=== PATIENT | female | born 1950 | race American Indian/Alaskan Native ===

== ENCOUNTER 2020-02-05 22:33 | Emergency (ER) | payer MEDICARE ==
[2020-02-05] MEDS ORDERED: ALBUTEROL 2.5 MG/3 ML NEBU IH ONE (23:33)
[2020-02-05] MEDS ORDERED: SODIUM CHLORIDE 0.9% 250ML 250 ML IV ONE (23:33)
--- NOTE | 2020-02-05 23:34 | Emergency Department Report ---
ED General Adult HPI - General Chief complaint: Upper Respiratory Infection Stated complaint: COUGHING BLOOD PUI?: No Time Seen by Provider: 02/05/20 23:17 Source: patient, EMS (Verbal report received from emergency medical services. EMS documentation not available at time of chart dictation ), RN notes reviewed Mode of arrival: Stretcher Limitations: Physical Limitation - History of Present Illness Initial comments: The patient was evaluated in the emergency department for symptoms described in the history of present illness. He/she was evaluated in the context of the global COVID-19 pandemic, which necessitated consideration that the patient might be at risk for infection with the virus that causes COVID-19. Institu tional protocols and algorithms that pertain to the evaluation of patients at risk for COVID-19 are in a state of rapid change based on information released by regulatory bodies including the CDC and federal and state organizations. These policies and algorithms were followed during the patient's care in the emergency department. Please note that these policies, procedures and recommendations changed on a rapid basis. Patient is a 69-year-old obese female, with a history of diabetes and hyper tension, sarcoidosis, chronic respiratory failure on 6 L of home oxygen, reported chronic systolic cardiac murmur, and systemic anticoagulation, presenting to the ER today with a complaint of coughing up blood. Patient states that she was cleaning at home with bleach, and began to cough vigorously, and then coughed up a few teaspoons worth of blood. This has since resolved. She denies headache, neck pain, chest pain, abdominal pain, hematemesis and bright red blood per rectum, and she also denies DVT and pulmonary embolism risk factors. She endorsed "clogged sinuses", which have been "there for a long time." -: Sudden Consistency: now resolved Improves with: none Worsens with: none - Related Data Home Medications Medication Instructions Recorded Confirmed Last Taken Albuterol Mdi (or & Nicu Only) 2 puff IH QID PRN 02/16/13 02/16/13 02/15/13 [ProAir HFA Inhaler] Ferrous Sulfate [Ferrous Sulfate 220 mg PO 02/16/13 02/16/13 02/15/13 Oral Liq 220 Mg/5 Ml] Furosemide [Furosemide ORAL LIQ] 40 mg PO QDAY 02/16/13 02/16/13 02/15/13 Hydrocodone Bit/Acetaminophen 1 tab PO Q6H PRN 02/16/13 02/16/13 02/15/13 [Hydrocodon-Acetaminoph 2.5-500 mg] Insulin NPH/Regular [NovoLIN 70/30] 20 unit SQ ONCE 02/16/13 02/16/13 02/16/13 Losartan [Cozaar] 50 mg PO QDAY 02/16/13 02/16/13 02/15/13 Pregabalin [Lyrica] 150 mg PO BID 02/16/13 02/16/13 02/15/13 Simvastatin 20 mg PO QDAY 02/16/13 02/16/13 02/15/13 Solifenacin Succinate [Vesicare] 5 mg PO QDAY 02/16/13 02/16/13 02/15/13 carvediloL [Coreg] 6.25 mg PO BID 02/16/13 02/16/13 02/15/13 dilTIAZem HCl [Diltiazem 24Hr ER] 02/16/13 02/16/13 02/15/13 metFORMIN [Glucophage] 500 mg PO BID 02/16/13 02/16/13 02/15/13 Allergies Allergy/AdvReac Type Severity Reaction Status Date / Time Sulfa (Sulfonamide Allergy Itching Unverified 02/16/13 10:36 Antibiotics) ED Review of Systems ROS: Stated complaint: COUGHING BLOOD Other details as noted in HPI Constitutional: denies: fever, malaise Eyes: denies: eye discharge ENT: congestion Respiratory: cough, shortness of breath, SOB with exertion, SOB at rest, wheezing Cardiovascular: denies: chest pain Gastrointestinal: denies: abdominal pain, hematemesis, melena, hematochezia Genitourinary: denies: dysuria Hematological/Lymphatic: denies: easy bleeding ED Past Medical Hx - Past Medical History Previous Medical History?: Yes Hx Diabetes: Yes Additional medical history: scarcodosis. "Heart probs". tachycardia - Surgical History Past Surgical History?: Yes Additional Surgical History: tonsil. thyroid. partial hyster - Social History Smoking Status: Never Smoker Substance Use Type: None - Medications Home Medications: Home Medications Medication Instructions Recorded Confirmed Last Taken Type Albuterol Mdi (or & Nicu Only) 2 puff IH QID PRN 02/16/13 02/16/13 02/15/13 History [ProAir HFA Inhaler] Ferrous Sulfate [Ferrous Sulfate 220 mg PO 02/16/13 02/16/13 02/15/13 History Oral Liq 220 Mg/5 Ml] Furosemide [Furosemide ORAL LIQ] 40 mg PO QDAY 02/16/13 02/16/13 02/15/13 History Hydrocodone Bit/Acetaminophen 1 tab PO Q6H PRN 02/16/13 02/16/13 02/15/13 History [Hydrocodon-Acetaminoph 2.5-500 mg] Insulin NPH/Regular [NovoLIN 70/30] 20 unit SQ ONCE 02/16/13 02/16/13 02/16/13 History Losartan [Cozaar] 50 mg PO QDAY 02/16/13 02/16/13 02/15/13 History Pregabalin [Lyrica] 150 mg PO BID 02/16/13 02/16/13 02/15/13 History Simvastatin 20 mg PO QDAY 02/16/13 02/16/13 02/15/13 History Solifenacin Succinate [Vesicare] 5 mg PO QDAY 02/16/13 02/16/13 02/15/13 History carvediloL [Coreg] 6.25 mg PO BID 02/16/13 02/16/13 02/15/13 History dilTIAZem HCl [Diltiazem 24Hr ER] 02/16/13 02/16/13 02/15/13 History metFORMIN [Glucophage] 500 mg PO BID 02/16/13 02/16/13 02/15/13 History ED Physical Exam - General Limitations: Physical Limitation General appearance: alert, in no apparent distress, obese - Head Head exam: Present: atraumatic, normocephalic - Eye Eye exam: Present: normal appearance, EOMI. Absent: nystagmus - ENT ENT exam: Present: normal exam, normal orophraynx, mucous membranes moist, normal external ear exam - Neck Neck exam: Present: normal inspection, full ROM. Absent: tenderness, meningismus - Respiratory Respiratory exam: Present: wheezes. Absent: respiratory distress, rhonchi, stridor - Cardiovascular Cardiovascular Exam: Present: regular rate, normal rhythm, normal heart sounds, systolic murmur (2 out of 6 systolic murmur heard best at right and left second intercostal space). Absent: bradycardia, tachycardia, irregular rhythm, diastolic murmur, rubs, gallop - GI/Abdominal GI/Abdominal exam: Present: soft. Absent: distended, tenderness, guarding, rebound, rigid, pulsatile mass - Extremities Exam Extremities exam: Present: normal inspection, full ROM, other (2+ pulses noted in the bilateral upper and lower extremities. There is no palpable cord. negative Homans sign. Muscular compartments are soft. The pelvis is stable.). Absent: pedal edema, calf tenderness - Back Exam Back exam: Present: normal inspection, full ROM. Absent: tenderness, CVA tenderness (R), CVA tenderness (L), paraspinal tenderness, vertebral tenderness - Neurological Exam Neurological exam: Present: alert, other (No facial droop. Tongue midline. Extraocular movements intact bilaterally. Facial sensation intact to light touch in V1, V2, V3 distribution bilaterally. 5 and a 5 strength in 4 ext remities. Sensation intact to light touch in 4 extremities.) - Psychiatric Psychiatric exam: Present: normal affect, normal mood - Skin Skin exam: Present: warm, dry, intact, normal color. Absent: rash ED Course Vital Signs 02/06/20 00:00 Temperature 98.4 F Pulse Rate 98 H Respiratory 16 Rate Blood Pressure 113/57 [Left] O2 Sat by Pulse 100 Oximetry - Reevaluation(s) Reevaluation #1: 02/06/20 00:05 Differential diagnosis, including but not limited to: Bronchitis, bronchiectasis, sinusitis, pneumonia Pneumonitis Assessment and plan: 69-year-old female with resolved hemoptysis, who denies DVT and pulmonary embolism risk factors, with mild left-sided maxillary sinus tenderness, no intraoral blood, no intranasal blood, with resolved bronchitis versus chemical pneumonitis. We will treat her symptoms, obtain x-ray of the chest, appropriate laboratory studies and reassess. 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 Bradley, with whom she follows with at [facility]. Reevaluation #2: 02/06/20 00:59 Patient reassessed. She feels improved. Heart rate is 94 bpm. X-ray of the chest reviewed and appreciated. Based off of the history and physical, do not suspect acute pneumonia. This is most likely bronchitis with possible superimposed mild pneumonitis. Patient denies fever, and states that she feels "fine." She also reports a history of chronic anemia, which "my outpatient primary care doctor is getting this figured out." She has been on iron sulfate supplementation in the past and does not like it "because it upsets my stomach. Chemistries reviewed and appreciated, fairly unremarkable. Patient endorses that she is reliable to follow-up as an outpatient. ED Medical Decision Making - Lab Data Result diagrams: 02/06/20 00:09 02/06/20 00:09 Vital Signs 02/06/20 00:00 Temperature 98.4 F Pulse Rate 98 H Respiratory 16 Rate Blood Pressure 113/57 [Left] O2 Sat by Pulse 100 Oximetry - Radiology Data Radiology results: image reviewed interpreted by me: 2 view x-ray of the chest shows diffuse parenchymal disease, suggestive of prior history of sarcoid Print Report Referring Physician: SHEREE COX Patient Name: MADDI ARELLANO Date of : 1950 Sex: Female Report Date: 2020-02-06 Report Status: [place] [address] XRay Report Signed Patient: MADDI ARELLANO MR#: [id number] : 1950 Acct:[id number] Age/Sex: 69 / F ADM Date: 02/05/20 Loc: ED Attending Dr: Ordering Physician: SHEREE COX MD Date of Service: 02/05/20 Procedure(s): XR chest routine 2V Accession Number(s): [id number] cc: SHEREE COX MD Me uoro Time In Minutes: CHEST 2 VIEWS INDICATION / CLINICAL INFORMATION: Hemoptysis. COMPARISON: None available. FINDINGS: SUPPORT DEVICES: None. HEART / MEDIASTINUM: No significant abnormality. LUNGS / PLEURA: There are diffuse bilateral parenchymal opacities slightly greater on the right than the left. .No pneumothorax. ADDITIONAL FINDINGS: No significant additional findings. IMPRESSION: 1. There are diffuse bilateral pulmonary opacities. This could represent diffuse pneumonia or edema. Signer Name: Jose Alejandro Soria MD Signed: 02/06/2020 12:16 AM Workstation Name: [id number] Transcribed By: SS Dictated By: Jose Alejandro Soria MD Electronically Authenticated By: Jose Alejandro Soria MD Signed Date/Time: 02/06/2015 DD/ TD/TT: Critical care attestation.: If time is entered above; I have spent that time in minutes in the direct care o f this critically ill patient, excluding procedure time. ED Disposition Clinical Impression: Microcytic anemia, Sarcoid, History of hemoptysis Disposition: TO HOME OR SELFCARE Is pt being admited?: No Does the pt Need Aspirin: No Condition: Stable Instructions: Acute Hemoptysis (ED), Sarcoidosis (ED) Additional Instructions: Please continue current outpatient medications. Minimize/avoid consumption of Motrin, ibuprofen, Naprosyn, Aleve. Avoid exposure to cleaning chemicals, bleeds, and industrial solvents. Please follow-up with a primary care doctor or sewer connector within the next 5 to 7 days. Please return to the emergency room right away with new pain, worsened pain, migration of pain, projectile vomiting, change in mental status, confusion, inability to tolerate liquid feeds, new, worsened or different symptoms not present on the initial emergency room evaluation Referrals: SELVIN SCHULTZ MD [Staff Physician] - 3-5 Days SID OSPINA MD [Staff Physician] - 3-5 Days
--- NOTE | 2020-02-06 00:21 | XRay Report ---
CHEST 2 VIEWS INDICATION / CLINICAL INFORMATION: Hemoptysis. COMPARISON: None available. FINDINGS: SUPPORT DEVICES: None. HEART / MEDIASTINUM: No significant abnormality. LUNGS / PLEURA: There are diffuse bilateral parenchymal opacities slightly greater on the right than the left. .No pneumothorax. ADDITIONAL FINDINGS: No significant additional findings. IMPRESSION: 1. There are diffuse bilateral pulmonary opacities. This could represent diffuse pneumonia or edema. Signer Name: Jose Alejandro Soria MD Signed: 02/06/2020 12:16 AM Workstation Name: [id number]
[2020-02-06 00:42] LABS: Hematocrit 27.2 % (30.3-42.9); Hemoglobin 8.9 gm/dl (10.1-14.3); Mean Corpuscular HGB Conc 33 % (30-34); Mean Corpuscular Volume 77 fl (79-97); Platelet Count 227 K/mm3 (140-440); Red Blood Count 3.56 M/mm3 (3.65-5.03); Red Cell Distribution Width 15.2 % (13.2-15.2)
[2020-02-06 00:49] LABS: Alanine Aminotransferase 23 units/L (7-56); Albumin 3.6 g/dL (3.9-5); BUN/Creatinine Ratio 18; Blood Urea Nitrogen 16 mg/dL (7-17); Calcium 8.8 mg/dL (8.4-10.2); Hemolysis Index 2; INR 0.97 (0.87-1.13)
[2020-02-06 01:39] VITALS: BP 133/73
== END 2020-02-06 02:20 | disposition home or self-care (01) ==
LOC: ED 22:33
DX: D50.9 Iron deficiency anemia, unspecified (principal); D86.9 Sarcoidosis, unspecified; R04.2 Hemoptysis; E11.9 Type 2 diabetes mellitus without complications; Z98.890 Other specified postprocedural states; Z79.899 Other long term (current) drug therapy; Z79.4 Long term (current) use of insulin; Z88.2 Allergy status to sulfonamides
CPT/HCPCS: 36415; 71046; 80053; 85027; 85610; 94640; 96360; 99285; J7050; 94644

== ENCOUNTER 2021-03-15 04:22 | Emergency (ER) | payer MEDICARE ==
--- NOTE | 2021-03-15 04:38 | Emergency Department Report ---
ED CPR HPI - General Stated Complaint: CARDIAC ARREST Time Seen by Provider: 03/15/21 04:24 - History of Present Illness Initial Comments: 70-year-old female, history of COPD, presents to the ED in cardiac arrest. EMS reports they received a call for patient that was "barely breathing." EMS arrived, patient was pulseless, apneic, and in asystole. Unknown downtime. Patient was intubated by EMS, ACLS was initiated. Accu-Chek in the 200s. Patient received epi x5, sodium bicarb x1. EMS reports last rhythm check showed PEA. Patient in continued arrest upon arrival. EMS reports they performed CPR on patient for at least 20 minutes. Of note, pt was intubated by EMS. ET tube upon arrival likely right main stem as O2 sats were low and decreased breath sounds in left lung field. ET tube was retracted until able to hear breath sounds bilaterally. O2 sats eventually normalized. MD Complaint: found unresponsive Place: home Initial Findings in the Field: unresponsive, no respirations, no pulse ROSC in the Field: No Treatments Prior to Arrival: chest compressions, epinephrine mgs # (4), sodium bicarbonate (x1) - Related Data Home Medications Medication Instructions Recorded Confirmed Last Taken Albuterol Mdi (or & Nicu Only) 2 puff IH QID PRN 02/16/13 02/16/13 02/15/13 [ProAir HFA Inhaler] Ferrous Sulfate [Ferrous Sulfate 220 mg PO 02/16/13 02/16/13 02/15/13 Oral Liq 220 Mg/5 Ml] Furosemide [Furosemide ORAL LIQ] 40 mg PO QDAY 02/16/13 02/16/13 02/15/13 Hydrocodone Bit/Acetaminophen 1 tab PO Q6H PRN 02/16/13 02/16/13 02/15/13 [Hydrocodon-Acetaminoph 2.5-500 mg] Insulin NPH/Regular [NovoLIN 70/30] 20 unit SQ ONCE 02/16/13 02/16/13 02/16/13 Losartan [Cozaar] 50 mg PO QDAY 02/16/13 02/16/13 02/15/13 Pregabalin [Lyrica] 150 mg PO BID 02/16/13 02/16/13 02/15/13 Simvastatin 20 mg PO QDAY 02/16/13 02/16/13 02/15/13 Solifenacin Succinate [Vesicare] 5 mg PO QDAY 02/16/13 02/16/13 02/15/13 carvediloL [Coreg] 6.25 mg PO BID 02/16/13 02/16/13 02/15/13 dilTIAZem HCl [Diltiazem 24Hr ER] 02/16/13 02/16/13 02/15/13 metFORMIN [Glucophage] 500 mg PO BID 02/16/13 02/16/13 02/15/13 Allergies Allergy/AdvReac Type Severity Reaction Status Date / Time Sulfa (Sulfonamide Allergy Itching Unverified 02/16/13 10:36 Antibiotics) ED Review of Systems ROS: Stated complaint: CARDIAC ARREST Other details as noted in HPI Comment: Unobtainable due to pts medical conditions ED Past Medical Hx - Past Medical History Hx Diabetes: Yes Additional medical history: scarcodosis. "Heart probs". tachycardia - Surgical History Additional Surgical History: tonsil. thyroid. partial hyster - Social History Smoking Status: Never Smoker Substance Use Type: None - Medications Home Medications: Home Medications Medication Instructions Recorded Confirmed Last Taken Type Albuterol Mdi (or & Nicu Only) 2 puff IH QID PRN 02/16/13 02/16/13 02/15/13 History [ProAir HFA Inhaler] Ferrous Sulfate [Ferrous Sulfate 220 mg PO 02/16/13 02/16/13 02/15/13 History Oral Liq 220 Mg/5 Ml] Furosemide [Furosemide ORAL LIQ] 40 mg PO QDAY 02/16/13 02/16/13 02/15/13 History Hydrocodone Bit/Acetaminophen 1 tab PO Q6H PRN 02/16/13 02/16/13 02/15/13 History [Hydrocodon-Acetaminoph 2.5-500 mg] Insulin NPH/Regular [NovoLIN 70/30] 20 unit SQ ONCE 02/16/13 02/16/13 02/16/13 History Losartan [Cozaar] 50 mg PO QDAY 02/16/13 02/16/13 02/15/13 History Pregabalin [Lyrica] 150 mg PO BID 02/16/13 02/16/13 02/15/13 History Simvastatin 20 mg PO QDAY 02/16/13 02/16/13 02/15/13 History Solifenacin Succinate [Vesicare] 5 mg PO QDAY 02/16/13 02/16/13 02/15/13 History carvediloL [Coreg] 6.25 mg PO BID 02/16/13 02/16/13 02/15/13 History dilTIAZem HCl [Diltiazem 24Hr ER] 02/16/13 02/16/13 02/15/13 History metFORMIN [Glucophage] 500 mg PO BID 02/16/13 02/16/13 02/15/13 History ED Physical Exam - General General appearance: obese - Head Head exam: Present: atraumatic, normocephalic - Eye Pupils: Present: other (fixed and dilated bilaterally) - ENT ENT exam: Present: other (ET tube in place; pink frothy sputum in tube) - Neck Neck exam: Present: normal inspection - Respiratory Respiratory exam: Present: other (No spontaneous breaths) - Cardiovascular Cardiovascular Exam: Present: other (No palpable pulse) - GI/Abdominal GI/Abdominal exam: Present: soft, distended - Extremities Exam Extremities exam: Present: pedal edema - Neurological Exam Neurological exam: Present: other (GCS 3) - Skin Skin exam: Present: warm, dry, intact, normal color ED Course Vital Signs 03/15/21 03/15/21 03/15/21 04:21 04:47 05:28 Respiratory 30 H Rate O2 Sat by Pulse 50 L 94 0 L Oximetry - Consultations Consultation #1: 03/15/21 04:[address] Delgado for review due to concern for aVR elevation and diffuse ST depressions. States no STEMI. ED Medical Decision Making - Lab Data Result diagrams: 03/15/21 04:36 03/15/21 04:36 - EKG Data -: EKG Interpreted by [place] EKG shows normal: sinus rhythm, intervals, QRS complexes Rate: normal - EKG Data Interpretation: other (aVR elevation; inferolateral depressions) - Radiology Data Radiology results: report reviewed, image reviewed - Medical Decision Making 70-year-old female presents to ED in cardiac arrest. Down for at least 20 minutes with EMS. Patient coded multiple times following ED arrival. Please see nurses notes for details. With each episode of ROSC, patient was noted to have normal blood pressures. Patient's blood pressure eventually began to trend downward. IV fluids were administered. Patient continued to be hypotensive, so decision was made to place a central line. During set up for central line, patient went into cardiac arrest again. Unable to get patient stable during her ED stay. Pupils fixed and dilated. No signs of neuro function. GCS 3. Ultimately, patient again went into PEA arrest and time of was called at 5:25 AM. - Differential Diagnosis ACS, PE, aortic dissection Critical Care Time: Yes Critical care time in (mins) excluding proc time.: 35 Critical care attestation.: If time is entered above; I have spent that time in minutes in the direct care of this critically ill patient, excluding procedure time. Critical Care Time: 35 min ED Disposition Clinical Impression: Cardiac arrest, Pneumonia, Anemia, Lactic acidosis Disposition: 20 Is pt being admited?: No Condition: Stable Instructions: Bacterial Pneumonia (ED) Referrals: PRIMARY CARE, [Primary Care Provider] - 3-5 Days
[2021-03-15] MEDS ORDERED: SODIUM CHLORIDE 0.9% 1000 ML 2,000 ML ONE (05:01)
[2021-03-15 05:02] LABS: Hematocrit 22.6 % (30.3-42.9); Hemoglobin 6.8 gm/dl (10.1-14.3); Mean Corpuscular HGB Conc 30 % (30-34); Mean Corpuscular Volume 90 fl (79-97); Platelet Count 171 K/mm3 (140-440); Red Blood Count 2.52 M/mm3 (3.65-5.03); Red Cell Distribution Width 18.1 % (13.2-15.2)
[2021-03-15] MEDS ORDERED: CEFEPIME/NS 2 GM/100 ML 2 GM/100 ML BAG IV ONE (05:04)
[2021-03-15 05:14] LABS: INR 1.08 (0.87-1.13)
[2021-03-15 05:15] LABS: Partial Thromboplastin Time 41.2 Sec. (24.2-36.6)
--- NOTE | 2021-03-15 05:19 | XRay Report ---
CHEST 1 VIEW 03/15/2021 4:30 AM INDICATION / CLINICAL INFORMATION: Postcardiac arrest. COMPARISON: 02/05/20. FINDINGS: SUPPORT DEVICES: There is an endotracheal tube with the tip approximately 3 cm above the jourdan. HEART / MEDIASTINUM: TAVR without complication. The heart size is normal. LUNGS / PLEURA: Moderate diffuse bilateral parenchymal disease, more prominent in the right upper lob e. Disease in the right upper lobe has increased significantly since the prior study. More diffuse bi lateral parenchymal disease is similar to the prior exam. No pleural effusion or pneumothorax. ADDITIONAL FINDINGS: No significant additional findings. IMPRESSION: Diffuse bilateral parenchymal disease, most prominent in the right upper lobe. Some of th e findings may be chronic. Disease in the right upper lobe has increased significantly and is likely related to pneumonia or aspiration. Signer Name: Benjamin Pineda MD Signed: 03/15/2021 5:15 AM Workstation Name: [id number]
[2021-03-15 05:27] LABS: Alanine Aminotransferase 49 units/L (7-56); Albumin 3.1 g/dL (3.9-5); BUN/Creatinine Ratio 15; Blood Urea Nitrogen 21 mg/dL (7-17); Calcium 8.3 mg/dL (8.4-10.2); Hemolysis Index 19
[2021-03-15 05:32] LABS: Bilirubin,Direct < 0.2 mg/dL (0-0.2)
[2021-03-15] MEDS ORDERED: VANCOMYCIN 2,000 MG in SODIUM CHLORIDE 0.9% 500 ML 500 ML IV ONE (05:43)
[2021-03-15 07:00] LABS: Total Cells Counted 100
[2021-03-15 07:01] LABS: Anisocytosis 1+; Band Neutrophils # (Manual) 1.3 K/mm3; Large Platelets Few; Myelocytes # (Manual) 0.4 K/mm3; Ovalocytes Few; Platelet Estimate Consistent w Auto; Promyelocytes # (Manual) 0.4 K/mm3
[2021-03-15] MEDS ORDERED: SODIUM BICARB 8.4% 50 MEQ/50 ML SYRINGE IV ONE (14:26)
[2021-03-15] MEDS ORDERED: EPINEPHrine 1 MG/10 ML SYRINGE ONE (14:26)
== END 2021-03-15 10:30 ==
LOC: ED 04:22
DX: I46.9 Cardiac arrest, cause unspecified (principal); J18.9 Pneumonia, unspecified organism; D64.9 Anemia, unspecified; E87.2 Acidosis; Z88.2 Allergy status to sulfonamides
CPT/HCPCS: 36415; 71045; 80048; 80076; 82140; 83880; 84484; 85007; 85025; 85610; 85730; 87040; 92950; 93005; 94002; 99291; J0171; J3370; J3490; J7030; J7040; Q0162